=== PATIENT | female | born 1955 | race Two or more races ===

== ENCOUNTER 2023-02-08 18:26 | Inpatient (IN) | payer OTHER ==
[~2023-02-08] VITALS: Ht 165.1 cm; Wt 80.0 kg
[2023-02-08] MEDS ORDERED: LABETALOL HCL 5 MG/ML 4ML SYRINGE IV ONE ×4 (19:09→21:15)
[2023-02-08 19:30] LABS: Basophils # (auto) 0.1 10 ^3/uL (0-0.2); Eosinophils # (auto) 0.3 10 ^3/uL (0-0.8); Eosinophils % (auto) 4.5 % (0.0-7.0); Hematocrit 36.4 % (36.0-46.0); Lymphocytes # (auto) 2.2 10 ^3/uL (0.4-5.4); Lymphocytes % (auto) 30.6 % (10.0-50.0); Mean Corpuscular Hemoglobin 30.5 pg (28.0-32.0); Mean Corpuscular Volume 92.5 fL (80.0-100.0); Monocytes # (auto) 0.4 10 ^3/uL (0-1.3); Monocytes % (auto) 5.6 % (0.0-12.0); Neutrophils # (auto) 4.2 10 ^3/uL (1.6-8.6); Neutrophils % (auto) 58.3 % (37.0-80.0); Nucleated Red Blood Cells % 0.1 %; Red Blood Cells 3.94 10^6/uL (4.0-5.20); White Blood Cell 7.1 10^3/uL (4.4-10.8)
[2023-02-08 19:39] LABS: Albumin 3.9 g/dL (3.4-5.0); BUN/Creatinine Ratio 20.4; Calcium 9.4 mg/dL (8.5-10.1); Potassium 3.8 mmol/L (3.5-5.1)
[2023-02-08 19:42] LABS: Bilirubin, Total 0.5 mg/dL (0.2-1.0); Total Protein 7.6 g/dL (6.4-8.2)
[2023-02-08 20:52] LABS: Urine Bacteria FEW /hpf (None Seen); Urine Blood Negative /uL (Negative); Urine Specific Gravity 1.003 (1.001-1.035); Urine WBC 6 /hpf (0 - 5)
[2023-02-08] MEDS ORDERED: MORPHINE SULFATE INJ 2 MG/ml SYRG IV PRN (22:15)
[2023-02-08] MEDS ORDERED: TEMAZEPAM 15 MG CAP PO PRN (22:15)
[2023-02-08] MEDS ORDERED: NITROGLYCERIN 0.4 MG SL TAB SL PRN (22:15)
[2023-02-09] VITALS (7 sets, daily range): BP systolic 126–156; BP diastolic 73–92
[2023-02-09] MEDS: ACETAMINOPHEN 325 MG TAB PO PRN ×3 (03:12→21:56)
[2023-02-09] MEDS ORDERED: ATOR20TA50 PO (05:04)
[2023-02-09] MEDS ORDERED: LOSA-69 PO (05:04)
[2023-02-09 08:27] LABS: Basophils # (auto) 0 10 ^3/uL (0-0.2); Basophils % (auto) 0.8 % (0.0-2.0); Eosinophils # (auto) 0.3 10 ^3/uL (0-0.8); Eosinophils % (auto) 4.5 % (0.0-7.0); Hemoglobin 11.3 g/dL (12.2-16.2); Lymphocytes # (auto) 1.8 10 ^3/uL (0.4-5.4); Lymphocytes % (auto) 27.8 % (10.0-50.0); Mean Corpuscular Hgb Conc. 34.3 g/dL (32.0-36.0); Mean Corpuscular Volume 90.3 fL (80.0-100.0); Monocytes # (auto) 0.4 10 ^3/uL (0-1.3); Monocytes % (auto) 5.6 % (0.0-12.0); Neutrophils % (auto) 61.3 % (37.0-80.0); Red Blood Cells 3.66 10^6/uL (4.0-5.20); Red Cell Distribution Width 14.2 % (11.8-14.3); White Blood Cell 6.4 10^3/uL (4.4-10.8)
[2023-02-09 08:41] LABS: Albumin 3.7 g/dL (3.4-5.0); Calcium 9.1 mg/dL (8.5-10.1); Potassium 3.8 mmol/L (3.5-5.1)
[2023-02-09 08:44] LABS: Bilirubin, Total 0.6 mg/dL (0.2-1.0)
[2023-02-09] MEDS: LOSARTAN POTASSIUM 50 MG TAB PO SCH ×2 (10:00→21:49)
[2023-02-09] MEDS: ASPirin 81 mg TAB PO SCH (10:00)
[2023-02-09] MEDS: ENOXAPARIN SOD 40 MG/0.4 ML SYRINGE SC SCH (10:00)
[2023-02-09] MEDS: hydrALAZINE HCL 20 MG/ML VL IV PRN (13:46)
[2023-02-09] MEDS: HYDROcodone-ACET 5/325MG TAB PO PRN (17:30)
[2023-02-09] MEDS: ONDANSETRON HCL 4 MG/2 ML VIAL IV PRN (17:30)
[2023-02-09] MEDS: ATORVASTATIN 20 MG TAB PO SCH (21:49)
[2023-02-10] MEDS ORDERED: HYDROmorphone HCL 2 MG/ML VL/or syr IV PRN (01:00)
[2023-02-10 05:00] VITALS: BP 117/75
[2023-02-10 08:00] VITALS: BP 142/97
[2023-02-10] MEDS: ASPirin 81 mg TAB PO SCH (09:02)
[2023-02-10] MEDS: LOSARTAN POTASSIUM 50 MG TAB PO SCH ×2 (09:02→22:00)
[2023-02-10] MEDS: ENOXAPARIN SOD 40 MG/0.4 ML SYRINGE SC SCH (09:03)
[2023-02-10] MEDS: ACETAMINOPHEN 325 MG TAB PO PRN (09:05)
[2023-02-10] MEDS ORDERED: LOSA-39 PO ×2 (10:00)
[2023-02-10 11:00] VITALS: BP 142/97
[2023-02-10] MEDS: hydrALAZINE HCL 20 MG/ML VL IV PRN ×2 (12:17→19:04)
[2023-02-10] MEDS: ONDANSETRON HCL 4 MG/2 ML VIAL IV PRN ×3 (13:50→23:39)
[2023-02-10 16:00] VITALS: BP 153/97
[2023-02-10] MEDS ORDERED: cloNIDine HCL 0.1 MG TAB PO PRN (17:15)
[2023-02-10 22:00] VITALS: BP 141/69
[2023-02-10] MEDS: ATORVASTATIN 20 MG TAB PO SCH (22:04)
[2023-02-11 05:00] VITALS: BP 142/78
[2023-02-11 06:51] LABS: Basophils # (auto) 0 10 ^3/uL (0-0.2); Basophils % (auto) 0.3 % (0.0-2.0); Eosinophils # (auto) 0 10 ^3/uL (0-0.8); Eosinophils % (auto) 0.4 % (0.0-7.0); Hematocrit 37.7 % (36.0-46.0); Hemoglobin 12.8 g/dL (12.2-16.2); Lymphocytes # (auto) 0.8 10 ^3/uL (0.4-5.4); Lymphocytes % (auto) 9.3 % (10.0-50.0); Mean Corpuscular Hemoglobin 31.6 pg (28.0-32.0); Mean Corpuscular Hgb Conc. 33.9 g/dL (32.0-36.0); Mean Corpuscular Volume 93.2 fL (80.0-100.0); Monocytes # (auto) 0.4 10 ^3/uL (0-1.3); Monocytes % (auto) 4.6 % (0.0-12.0); Neutrophils # (auto) 7.8 10 ^3/uL (1.6-8.6); Neutrophils % (auto) 85.4 % (37.0-80.0); Nucleated Red Blood Cells % 0.2 %; Red Blood Cells 4.04 10^6/uL (4.0-5.20); Red Cell Distribution Width 14.2 % (11.8-14.3); White Blood Cell 9.1 10^3/uL (4.4-10.8)
[2023-02-11 07:26] LABS: Potassium 4.1 mmol/L (3.5-5.1)
[2023-02-11 07:32] LABS: BUN/Creatinine Ratio 21.5
[2023-02-11 07:36] LABS: Bilirubin, Total 0.6 mg/dL (0.2-1.0); Total Protein 8.2 g/dL (6.4-8.2)
[2023-02-11 08:41] VITALS: BP 168/83
[2023-02-11] MEDS: ONDANSETRON HCL 4 MG/2 ML VIAL IV PRN (08:44)
[2023-02-11] MEDS: PANTOPRAZOLE 40 MG/10 ML VIAL INJ IV SCH (08:48)
[2023-02-11] MEDS: SUCRALFATE 1 GM/10 ML ORAL SUSP PO SCH ×2 (08:48→16:56)
[2023-02-11] MEDS: LOSARTAN POTASSIUM 50 MG TAB PO SCH ×2 (08:55→22:06)
[2023-02-11] MEDS: ASPirin 81 mg TAB PO SCH (08:59)
[2023-02-11] MEDS: ENOXAPARIN SOD 40 MG/0.4 ML SYRINGE SC SCH (09:01)
[2023-02-11 13:00] VITALS: BP 129/87
[2023-02-11] MEDS: HYDROcodone-ACET 5/325MG TAB PO PRN (13:07)
[2023-02-11] MEDS: hydrALAZINE HCL 20 MG/ML VL IV PRN (17:03)
[2023-02-11 17:20] VITALS: BP 172/74
[2023-02-11 17:48] VITALS: BP 147/78
[2023-02-11 22:00] VITALS: BP 118/76
[2023-02-11] MEDS: ATORVASTATIN 20 MG TAB PO SCH (22:06)
[2023-02-12 05:00] VITALS: BP 134/74
[2023-02-12] MEDS: SUCRALFATE 1 GM/10 ML ORAL SUSP PO SCH (06:24)
[2023-02-12 09:00] VITALS: BP 114/67
[2023-02-12] MEDS ORDERED: SUCR1TAB22 PO (09:27)
[2023-02-12] MEDS ORDERED: LOSA-39 PO (09:27)
[2023-02-12] MEDS ORDERED: PANT40T PO (09:27)
[2023-02-12] MEDS: LOSARTAN POTASSIUM 50 MG TAB PO SCH (09:40)
[2023-02-12] MEDS: ASPirin 81 mg TAB PO SCH (09:41)
[2023-02-12] MEDS: PANTOPRAZOLE 40 MG/10 ML VIAL INJ IV SCH (09:41)
[2023-02-12] MEDS: ENOXAPARIN SOD 40 MG/0.4 ML SYRINGE SC SCH (09:48)
[2023-02-12 12:30] VITALS: BP 111/72
== END 2023-02-12 13:30 | disposition home or self-care (01) | DRG 305 ==
LOC: ER 18:26 → TELE 22:18 → TELE-CENTR 02-09 03:29
PROVIDERS: ADMIT Nurse Practitioner; ATTEND Family Medicine
DX: I16.1 Hypertensive emergency (principal); I67.4 Hypertensive encephalopathy; I10 Essential (primary) hypertension; Z20.822 Contact with and (suspected) exposure to COVID-19; E78.00 Pure hypercholesterolemia, unspecified; I20.8 Other forms of angina pectoris; Z82.49 Family history of ischemic heart disease and other diseases of the circulatory system; Z83.3 Family history of diabetes mellitus
CPT/HCPCS: 36415; 70450; 71045; 76705; 80053; 81001; 83690; 83880; 84484; 85025; 87426; 93005; 93306; 96374; 96376; 99291; C9113; G0378; J2405; J3490

== ENCOUNTER 2023-02-14 20:38 | Emergency (ER) | payer OTHER ==
[~2023-02-14] VITALS: Ht 165.1 cm; Wt 79.0 kg
[2023-02-14 20:38] VITALS: BP 153/86
[~2023-02-14 20:38] MED LIST: ATOR20TA50 PO; LOSA-39 PO; LOSA-69 PO; PANT40T PO; SUCR1TAB22 PO
== END 2023-02-15 02:38 | disposition home or self-care (01) ==
LOC: ER 20:38
DX: I10 Essential (primary) hypertension (principal); E78.5 Hyperlipidemia, unspecified; Z88.6 Allergy status to analgesic agent
CPT/HCPCS: 93005